=== PATIENT | female | born 1965 | race American Indian/Alaskan Native ===

== ENCOUNTER 2021-11-22 09:03 | Inpatient (IN) | payer MEDICARE ==
[2021-11-22] MEDS ORDERED: SODIUM CHLORIDE 0.9% 1000 ML 1,000 ML IV ONE (09:41)
[2021-11-22] MEDS ORDERED: ONDANSETRON 4 MG/2 ML INJ IV ONE (10:11)
[2021-11-22 10:47] LABS: Basophils % (Auto) 0.3 % (0.0-1.8); Eosinophils % (Auto) 0.3 % (0.0-4.3); Hematocrit 39.4 % (30.3-42.9); Hemoglobin 12.3 gm/dl (10.1-14.3); Lymphocytes # (Auto) 1.2 K/mm3 (1.2-5.4); Mean Corpuscular HGB Conc 31 % (30-34); Mean Corpuscular Volume 88 fl (79-97); Monocytes # (Auto) 1.5 K/mm3 (0.0-0.8); Monocytes % (Auto) 8.9 % (0.0-7.3); Platelet Count 231 K/mm3 (140-440); Red Blood Count 4.46 M/mm3 (3.65-5.03); Red Cell Distribution Width 15.3 % (13.2-15.2)
--- NOTE | 2021-11-22 10:59 | Electrocardiograph Report ---
[facility] Test Date: 2021-11-22 Test Time: 10:32:28 Pat Name: MARY BAIRD Department: Room: Gender: F Bundle Person: SHANIA : 1965 Requested By: ELIZABETH GARZA Order Number: [id number] Reading MD: Alban Mckenna Measurements Intervals [place] Rate: 80 P: 53 MN: 146 QRS: 48 QRSD: 94 T: 45 QT: 407 QTc: 468 Interpretive Statements Sinus rhythm No previous ECG available for comparison Electronically Signed On 11-22-2021 10:58:46 EDT by Alban Mckenna
[2021-11-22 11:08] LABS: Albumin 3.9 g/dL (3.9-5); Calcium 8.4 mg/dL (8.4-10.2)
--- NOTE | 2021-11-22 11:55 | Emergency Department Report ---
ED N/V/D HPI - General Chief complaint: Dizziness Stated complaint: LIGHT HEADEDNESS Time Seen by Provider: 11/22/21 09:41 Source: patient, EMS Mode of arrival: Stretcher Limitations: Physical Limitation - History of Present Illness Initial comments: Patient is a 56-year-old female presented ED with complaint of nausea vomiting in dizziness for the past 3 days. She reports history of remote gastric bypass and states she has had off and on episodes of nausea and vomiting. States she may have eaten something over the past few days that triggered her episode. She denies any fever, chills or abdominal pain. - Related Data Home Medications Medication Instructions Recorded Confirmed Last Taken Gabapentin 300 mg PO DAILY 05/11/13 07/28/16 06/07/13 22:00 dilTIAZem [Cardizem] 60 mg PO BID 05/11/13 07/28/16 06/08/13 07:00 Escitalopram Oxalate [Lexapro] 40 mg PO BID 07/28/16 07/28/16 Unknown Gabapentin [Gralise] 300 mg PO DAILY 07/28/16 07/28/16 Unknown Metoprolol [Lopressor] 25 mg PO BID 07/28/16 07/28/16 Unknown Oxycodone HCl [Oxycontin] 80 mg PO BID PRN 07/28/16 07/28/16 Unknown Oxycodone HCl/Acetaminophen 1 each PO TID PRN 07/28/16 07/28/16 Unknown [Percocet 10/325 mg] Tizanidine HCl [Zanaflex] 2 mg PO TID PRN 07/28/16 07/28/16 Unknown buPROPion HCl [Wellbutrin SR] 200 mg PO QAM 07/28/16 07/28/16 Unknown cloNIDine HCL [Catapres] 0.3 mg PO HS 07/28/16 07/28/16 Unknown Allergies Allergy/AdvReac Type Severity Reaction Status Date / Time No Known Allergies Allergy Verified 11/22/21 09:22 ED Review of Systems ROS: Stated complaint: LIGHT HEADEDNESS Other details as noted in HPI Constitutional: malaise, weakness Respiratory: denies: cough, shortness of breath, wheezing Cardiovascular: denies: chest pain, palpitations Gastrointestinal: nausea, vomiting. denies: abdominal pain Genitourinary: denies: urgency, dysuria, discharge Musculoskeletal: denies: back pain, joint swelling, arthralgia Skin: denies: rash, lesions Neurological: denies: headache, weakness, paresthesias Psychiatric: denies: anxiety, depression ED Past Medical Hx - Past Medical History Hx Hypertension: Yes (x 20 yrs) Hx Heart Attack/AMI: No Hx Congestive Heart Failure: Yes (2008 MEDICATION REACTION) Hx Diabetes: Yes (past hx) Hx GERD: Yes (past hx) Hx Liver Disease: No Hx Renal Disease: No Hx Sickle Cell Disease: No Hx Arthritis: Yes Hx Headaches / Migraines: Yes Hx Seizures: No Hx Asthma: Yes (flares up with colds, last treated last winter) Hx COPD: No Hx HIV: No - Surgical History Hx Pacemaker: No Hx Internal Defibrillator: No - Social History Smoking Status: Never Smoker - Medications Home Medications: Home Medications Medication Instructions Recorded Confirmed Last Taken Type Gabapentin 300 mg PO DAILY 05/11/13 07/28/16 06/07/13 22:00 History dilTIAZem [Cardizem] 60 mg PO BID 05/11/13 07/28/16 06/08/13 07:00 History Escitalopram Oxalate [Lexapro] 40 mg PO BID 07/28/16 07/28/16 Unknown History Gabapentin [Gralise] 300 mg PO DAILY 07/28/16 07/28/16 Unknown History Metoprolol [Lopressor] 25 mg PO BID 07/28/16 07/28/16 Unknown History Oxycodone HCl [Oxycontin] 80 mg PO BID PRN 07/28/16 07/28/16 Unknown History Oxycodone HCl/Acetaminophen 1 each PO TID PRN 07/28/16 07/28/16 Unknown History [Percocet 10/325 mg] Tizanidine HCl [Zanaflex] 2 mg PO TID PRN 07/28/16 07/28/16 Unknown History buPROPion HCl [Wellbutrin SR] 200 mg PO QAM 07/28/16 07/28/16 Unknown History cloNIDine HCL [Catapres] 0.3 mg PO HS 07/28/16 07/28/16 Unknown History ED Physical Exam - General Limitations: Physical Limitation General appearance: alert, in no apparent distress, obese - Head Head exam: Present: atraumatic, normocephalic - Respiratory Respiratory exam: Present: normal lung sounds bilaterally. Absent: respiratory distress - Cardiovascular Cardiovascular Exam: Present: regular rate, normal rhythm, normal heart sounds - GI/Abdominal GI/Abdominal exam: Present: soft. Absent: distended, tenderness - Rectal Rectal exam: Present: deferred - Neurological Exam Neurological exam: Present: alert, oriented X3 - Psychiatric Psychiatric exam: Present: normal affect, normal mood - Skin Skin exam: Present: warm, dry, intact, normal color ED Course Vital Signs 11/22/21 11/22/21 11/22/21 09:15 09:39 10:00 Pulse Rate 80 73 77 Respiratory 14 12 14 Rate Blood Pressure 115/55 Blood Pressure 105/83 [Left] O2 Sat by Pulse 95 97 Oximetry 11/22/21 11/22/21 11/22/21 10:16 10:46 11:00 Pulse Rate 80 80 83 Respiratory 13 13 13 Rate Blood Pressure 115/55 147/92 116/68 Blood Pressure [Left] O2 Sat by Pulse 90 92 Oximetry 11/22/21 11:16 Pulse Rate 86 Respiratory 11 L Rate Blood Pressure 116/68 Blood Pressure [Left] O2 Sat by Pulse 91 Oximetry ED Medical Decision Making - Lab Data Result diagrams: 11/22/21 10:06 11/22/21 10:06 - Medical Decision Making Labs reveal acute renal failure with creatinine of 7.7 and BUN of 50. Potassium is 3.6. Patient given 1 L of saline bolus. I discussed case with tripper Dr. Cabrera who will consult. Will admit to hospitalist. Critical care attestation.: If time is entered above; I have spent that time in minutes in the direct care of this critically ill patient, excluding procedure time. ED Disposition Clinical Impression: Acute renal failure, Nausea and vomiting Disposition: ADMITTED INPATIENT Is pt being admited?: Yes Condition: Stable Referrals: PRIMARY CARE, [Primary Care Provider] - 3-5 Days
[2021-11-22] MEDS ORDERED: ACETAMINOPHEN 325 MG TAB PO PRN (13:30)
[2021-11-22] MEDS ORDERED: ONDANSETRON 4 MG/2 ML INJ IV PRN (13:30)
[2021-11-22] MEDS ORDERED: oxyCODONE /ACETAMINOPHEN 5-325MG TAB PO PRN (13:30)
[2021-11-22] MEDS ORDERED: MORPHINE 2 MG/1 ML INJ IV PRN (13:30)
--- NOTE | 2021-11-22 14:02 | Consultation ---
History of Present Illness - Reason for Consult Consult date: 11/22/21 acute renal failure Requesting physician: FANNIE PADILLA - History of Present Illness Patient is a 56-year-old female presented ED with complaint of nausea vomiting in dizziness for the past 3 days. She reports history of remote gastric bypass and states she has had off and on episodes of nausea and vomiting. States she may have eaten something over the past few days that triggered her episode. She denies any fever, chills or abdominal pain. ROS: Stated complaint: LIGHT HEADEDNESS Other details as noted in HPI Constitutional: malaise, weakness Respiratory: denies: cough, shortness of breath, wheezing Cardiovascular: denies: chest pain, palpitations Gastrointestinal: nausea, vomiting. denies: abdominal pain Genitourinary: denies: urgency, dysuria, discharge Musculoskeletal: denies: back pain, joint swelling, arthralgia Skin: denies: rash, lesions Neurological: denies: headache, weakness, paresthesias Psychiatric: denies: anxiety, depression - Past Medical History Hx Hypertension: Yes (x 20 yrs) Hx Heart Attack/AMI: No Hx Congestive Heart Failure: Yes (2009 MEDICATION REACTION) Hx Diabetes: Yes (past hx) Hx GERD: Yes (past hx) Hx Liver Disease: No Hx Renal Disease: No Hx Sickle Cell Disease: No Hx Arthritis: Yes Hx Headaches / Migraines: Yes Hx Seizures: No Hx Asthma: Yes (flares up with colds, last treated last winter) Hx COPD: No Hx HIV: No - Surgical History Hx Pacemaker: No Hx Internal Defibrillator: No - Social History Smoking Status: Never Smoker Medications and Allergies Allergies Allergy/AdvReac Type Severity Reaction Status Date / Time No Known Allergies Allergy Verified 11/22/21 09:22 Home Medications Medication Instructions Recorded Confirmed Last Taken Type Gabapentin 300 mg PO DAILY 05/11/13 07/28/16 06/07/13 22:00 History dilTIAZem [Cardizem] 60 mg PO BID 05/11/13 07/28/16 06/08/13 07:00 History Escitalopram Oxalate [Lexapro] 40 mg PO BID 07/28/16 07/28/16 Unknown History Gabapentin [Gralise] 300 mg PO DAILY 07/28/16 07/28/16 Unknown History Metoprolol [Lopressor] 25 mg PO BID 07/28/16 07/28/16 Unknown History Oxycodone HCl [Oxycontin] 80 mg PO BID PRN 07/28/16 07/28/16 Unknown History Oxycodone HCl/Acetaminophen 1 each PO TID PRN 07/28/16 07/28/16 Unknown History [Percocet 10/325 mg] Tizanidine HCl [Zanaflex] 2 mg PO TID PRN 07/28/16 07/28/16 Unknown History buPROPion HCl [Wellbutrin SR] 200 mg PO QAM 07/28/16 07/28/16 Unknown History cloNIDine HCL [Catapres] 0.3 mg PO HS 07/28/16 07/28/16 Unknown History Active Meds: Active Medications Acetaminophen (Acetaminophen 325 Mg Tab) 650 mg PO Q4H PRN PRN Reason: Pain MILD(1-3)/Fever >100.5/TROTTER Famotidine (Famotidine 20 Mg/2 Ml Inj) 10 mg IV BID LISY Sodium Chloride (Nacl 0.45% 1000 Ml) 1,000 mls @ 125 mls/hr IV DIRECT LISY Morphine Sulfate (Morphine 2 Mg/1 Ml Inj) 2 mg IV Q4H PRN PRN Reason: Pain, Moderate (4-6) Ondansetron HCl (Ondansetron 4 Mg/2 Ml Inj) 4 mg IV Q8H PRN PRN Reason: Nausea And Vomiting Oxycodone/Acetaminophen (Oxycodone /Acetaminophen 5-325mg Tab) 1 tab PO Q6H PRN PRN Reason: Pain, Moderate (4-6) Sodium Chloride (Sodium Chloride 0.9% 10 Ml Flush Syringe) 10 ml IV BID LISY Sodium Chloride (Sodium Chloride 0.9% 10 Ml Flush Syringe) 10 ml IV PRN PRN PRN Reason: LINE FLUSH Exam - Vital Signs Vital signs: Vital Signs Pulse Resp BP Pulse Ox 80 14 105/83 95 11/22/21 09:15 11/22/21 09:15 11/22/21 09:15 11/22/21 09:15 - Physical Exam Narrative exam: - General Limitations: Physical Limitation General appearance: alert, in no apparent distress, obese - Head Head exam: Present: atraumatic, normocephalic - Respiratory Respiratory exam: Present: normal lung sounds bilaterally. Absent: respiratory distress - Cardiovascular Cardiovascular Exam: Present: regular rate, normal rhythm, normal heart sounds - GI/Abdominal GI/Abdominal exam: Present: soft. Absent: distended, tenderness - Rectal Rectal exam: Present: deferred - Neurological Exam Neurological exam: Present: alert, oriented X3 - Psychiatric Psychiatric exam: Present: normal affect, normal mood - Skin Skin exam: Present: warm, dry, intact, normal color Results - Lab Results 11/22/21 10:06 11/22/21 10:06 Most recent lab results Calcium 8.4 mg/dL (8.4-10.2) 11/22/21 10:06 Assessment and Plan impresstion: * JYOTI on likely ckd * Volume depletion * nausea and emesis * s/p gastric bypass * nsaid abuse Plan: * stat ct abd/pelvis noted, no hydronephrosis * follow up eos, stop all NSAIDS * may have advanced ckd, has not seen MD since 2019 * ua and urine lytes * ruled out obstruction * daily lytes * avoid nephrotoxins * unsure if JYOTI due to volume depletion, vs obstruction vs atn/ain vs progression of CKD, she has not seen a MD in years * no emergent indication for EVENT [employer]PERATIONS [employer]GER at this time
[2021-11-22] MEDS: FAMOTIDINE 20 MG/2 ML INJ IV SCH ×2 (15:05→22:46)
--- NOTE | 2021-11-22 15:19 | Cat Scan Report ---
CT ABDOMEN AND PELVIS WITHOUT CONTRAST INDICATION / CLINICAL INFORMATION: ABDOMINAL PAIN. TECHNIQUE: Axial CT images were obtained through the abdomen and pelvis without IV contrast. All CT scans at this location are performed using CT dose reduction for ALARA by means of automated exposure control. COMPARISON: Ultrasound dated 11/16/08 FINDINGS: LOWER CHEST: No significant abnormality. LIVER: No significant abnormality. GALLBLADDER: Cholecystectomy. BILE DUCTS: No significant abnormality. PANCREAS: No significant abnormality. SPLEEN: No significant abnormality. ADRENALS: No significant abnormality. RIGHT KIDNEY / URETER: Simple cyst but no significant abnormality. LEFT KIDNEY / URETER: No significant abnormality. STOMACH / SMALL BOWEL: Gastric bypass with yesterday jejunostomy. No small bowel abnormality. COLON: No significant abnormality. APPENDIX: No significant abnormality. PERITONEUM: No free fluid. No free air. No fluid collection. LYMPH NODES: No significant adenopathy. AORTA / ARTERIES: No significant abnormality. IVC / VEINS: No significant abnormality. URINARY BLADDER: No significant abnormality. REPRODUCTIVE ORGANS: Calcified fibroid in the uterus. No significant abnormality. ADDITIONAL FINDINGS: Small fat-containing umbilical hernia. No bowel involvement. SKELETAL SYSTEM: No significant abnormality. IMPRESSION: 1. No acute process in the abdomen or pelvis. 2. Cholecystectomy and gastric bypass. Signer Name: Quang Rolon MD Signed: 11/22/2021 3:15 PM Workstation Name: [place]
[2021-11-22] MEDS: SODIUM CHLORIDE 0.45% 1000 ML 1,000 ML IV SCH (18:00)
[2021-11-23 03:23] LABS: Bacteria,Urine 1+ /HPF (Negative); Mucus,Urine FEW /HPF
[2021-11-23 03:30] LABS: Color,Urine Yellow (Yellow)
[2021-11-23 04:08] LABS: Creatinine,Urine 311.8 mg/dL (0.1-20.0); Protein/Creatinine Ratio,Urine 0.21
--- NOTE | 2021-11-23 06:39 | History and Physical Report ---
History of Present Illness Date of examination: 11/22/21 Date of admission: 11/22/21 12:53 Chief complaint: Persistent nausea and vomiting for 3 days. History of present illness: 56-year-old female with history of hypertension, peripheral neuropathy, s/p gastric bypass comes in for persistent vomiting and nausea for the past 3 days. Also abdominal pain which is diffuse. Nausea and vomiting is a exacerbating factor. No fever or chills. Patient attributes to eating some fast food 3 days ago. In the emergency room patient's blood pressure creatinine was very high around 7 habits requiring admission for management of possible JYOTI/CKD. Nephrology consulted. - Past Medical History Hx Hypertension: Yes (x 20 yrs) Hx Heart Attack/AMI: No Hx Congestive Heart Failure: Yes (2008 MEDICATION REACTION) Hx Diabetes: Yes (past hx) Hx GERD: Yes (past hx) Hx Arthritis: Yes Hx Headaches / Migraines: Yes Hx Asthma: Yes (flares up with colds, last treated last winter) - Surgical History Hx Pacemaker: No Hx Internal Defibrillator: No - Social History Smoking Status: Never Smoker - Medications Home Medications: Home Medications Medication Instructions Recorded Confirmed Last Taken Type Gabapentin 300 mg PO DAILY 05/11/13 07/28/16 06/07/13 22:00 History dilTIAZem [Cardizem] 60 mg PO BID 05/11/13 07/28/16 06/08/13 07:00 History Escitalopram Oxalate [Lexapro] 40 mg PO BID 07/28/16 07/28/16 Unknown History Gabapentin [Gralise] 300 mg PO DAILY 07/28/16 07/28/16 Unknown History Metoprolol [Lopressor] 25 mg PO BID 07/28/16 07/28/16 Unknown History Oxycodone HCl [Oxycontin] 80 mg PO BID PRN 07/28/16 07/28/16 Unknown History Oxycodone HCl/Acetaminophen 1 each PO TID PRN 07/28/16 07/28/16 Unknown History [Percocet 10/325 mg] Tizanidine HCl [Zanaflex] 2 mg PO TID PRN 07/28/16 07/28/16 Unknown History buPROPion HCl [Wellbutrin SR] 200 mg PO QAM 07/28/16 07/28/16 Unknown History cloNIDine HCL [Catapres] 0.3 mg PO HS 07/28/16 07/28/16 Unknown History Review of Systems ROS: Stated complaint: LIGHT HEADEDNESS Other details as noted in HPI Constitutional: malaise, weakness Respiratory: denies: cough, shortness of breath, wheezing Cardiovascular: denies: chest pain, palpitations Gastrointestinal: nausea, vomiting. denies: abdominal pain Genitourinary: denies: urgency, dysuria, discharge Musculoskeletal: denies: back pain, joint swelling, arthralgia Skin: denies: rash, lesions Neurological: denies: headache, weakness, paresthesias Psychiatric: denies: anxiety, depression Medications and Allergies Allergies Allergy/AdvReac Type Severity Reaction Status Date / Time No Known Allergies Allergy Verified 11/22/21 09:22 Home Medications Medication Instructions Recorded Confirmed Last Taken Type Gabapentin 300 mg PO DAILY 05/11/13 07/28/16 06/07/13 22:00 History dilTIAZem [Cardizem] 60 mg PO BID 05/11/13 07/28/16 06/08/13 07:00 History Escitalopram Oxalate [Lexapro] 40 mg PO BID 07/28/16 07/28/16 Unknown History Gabapentin [Gralise] 300 mg PO DAILY 07/28/16 07/28/16 Unknown History Metoprolol [Lopressor] 25 mg PO BID 07/28/16 07/28/16 Unknown History Oxycodone HCl [Oxycontin] 80 mg PO BID PRN 07/28/16 07/28/16 Unknown History Oxycodone HCl/Acetaminophen 1 each PO TID PRN 07/28/16 07/28/16 Unknown History [Percocet 10/325 mg] Tizanidine HCl [Zanaflex] 2 mg PO TID PRN 07/28/16 07/28/16 Unknown History buPROPion HCl [Wellbutrin SR] 200 mg PO QAM 07/28/16 07/28/16 Unknown History cloNIDine HCL [Catapres] 0.3 mg PO HS 07/28/16 07/28/16 Unknown History Active Meds: Active Medications Acetaminophen (Acetaminophen 325 Mg Tab) 650 mg PO Q4H PRN PRN Reason: Pain MILD(1-3)/Fever >100.5/TROTTER Famotidine (Famotidine 20 Mg/2 Ml Inj) 10 mg IV BID [facility] Last Admin: 11/22/21 22:46 Dose: 10 mg Sodium Chloride (Nacl 0.45% 1000 Ml) 1,000 mls @ 125 mls/hr IV DIRECT LISY Last Admin: 11/22/21 18:00 Dose: 125 mls/hr Morphine Sulfate (Morphine 2 Mg/1 Ml Inj) 2 mg IV Q4H PRN PRN Reason: Pain, Moderate (4-6) Ondansetron HCl (Ondansetron 4 Mg/2 Ml Inj) 4 mg IV Q8H PRN PRN Reason: Nausea And Vomiting Oxycodone/Acetaminophen (Oxycodone /Acetaminophen 5-325mg Tab) 1 tab PO Q6H PRN PRN Reason: Pain, Moderate (4-6) Last Admin: 11/22/21 22:45 Dose: 1 tab Sodium Chloride (Sodium Chloride 0.9% 10 Ml Flush Syringe) 10 ml IV BID [facility] Last Admin: 11/22/21 22:45 Dose: 10 ml Sodium Chloride (Sodium Chloride 0.9% 10 Ml Flush Syringe) 10 ml IV PRN PRN PRN Reason: LINE FLUSH Exam - Constitutional Vitals: Temp Pulse Resp BP Pulse Ox 98.5 F 75 18 105/55 95 11/22/21 20:37 11/23/21 04:21 11/23/21 04:21 11/23/21 04:21 11/23/21 04:21 General appearance: Present: mild distress, well-nourished - EENT Eyes: Present: PERRL ENT: hearing intact, clear oral mucosa - Neck Neck: Present: supple, normal ROM - Respiratory Respiratory effort: normal Respiratory: bilateral: CTA - Cardiovascular Heart rate: 78 Rhythm: regular Heart Sounds: Present: S1 & S2. Absent: rub, click - Extremities Extremities: pulses symmetrical, No edema Peripheral Pulses: within normal limits - Abdominal General gastrointestinal: Present: soft, non-tender, non-distended, normal bowel sounds Female genitourinary: Present: normal - Integumentary Integumentary: Present: clear, warm, dry - Musculoskeletal Musculoskeletal: gait normal, strength equal bilaterally - Psychiatric Psychiatric: appropriate mood/affect, intact judgment & insight - Neurologic Neurologic: CNII-XII intact, moves all extremities HEART Score - HEART Score Troponin: Troponin T 0.020 ng/mL (0.00-0.029) 11/22/21 10:06 Results - Labs CBC & Chem 7: 11/22/21 10:06 11/22/21 10:06 Labs: Laboratory Last Values WBC 16.6 K/mm3 (4.5-11.0) H 11/22/21 10:06 RBC 4.46 M/mm3 (3.65-5.03) 11/22/21 10:06 Hgb 12.3 gm/dl (10.1-14.3) 11/22/21 10:06 Hct 39.4 % (30.3-42.9) 11/22/21 10:06 MCV 88 fl (79-97) 11/22/21 10:06 MCH 28 pg (28-32) 11/22/21 10:06 MCHC 31 % (30-34) 11/22/21 10:06 RDW 15.3 % (13.2-15.2) H 11/22/21 10:06 Plt Count 231 K/mm3 (140-440) 11/22/21 10:06 Lymph % (Auto) 7.0 % (13.4-35.0) L 11/22/21 10:06 [place] % (Auto) 8.9 % (0.0-7.3) H 11/22/21 10:06 Eos % (Auto) 0.3 % (0.0-4.3) 11/22/21 10:06 Baso % (Auto) 0.3 % (0.0-1.8) 11/22/21 10:06 Lymph # (Auto) 1.2 K/mm3 (1.2-5.4) 11/22/21 10:06 [place] # (Auto) 1.5 K/mm3 (0.0-0.8) H 11/22/21 10:06 Eos # (Auto) 0.0 K/mm3 (0.0-0.4) 11/22/21 10:06 Baso # (Auto) 0.0 K/mm3 (0.0-0.1) 11/22/21 10:06 Seg Neutrophils % 83.5 % (40.0-70.0) H 11/22/21 10:06 Seg Neutrophils # 13.8 K/mm3 (1.8-7.7) H 11/22/21 10:06 Sodium 133 mmol/L (137-145) L 11/22/21 10:06 Potassium 3.6 mmol/L (3.6-5.0) 11/22/21 10:06 Chloride 90.0 mmol/L (98-107) L 11/22/21 10:06 Carbon Dioxide 27 mmol/L (22-30) 11/22/21 10:06 Anion Gap 20 mmol/L 11/22/21 10:06 BUN 50 mg/dL (7-17) H 11/22/21 10:06 Creatinine 7.7 mg/dL (0.6-1.2) H 11/22/21 10:06 Estimated GFR 7 ml/min 11/22/21 10:06 BUN/Creatinine Ratio 6 % 11/22/21 10:06 Glucose 96 mg/dL (65-100) 11/22/21 10:06 Calcium 8.4 mg/dL (8.4-10.2) 11/22/21 10:06 Total Bilirubin 0.70 mg/dL (0.1-1.2) 11/22/21 10:06 AST 59 units/L (5-40) H 11/22/21 10:06 ALT 28 units/L (7-56) 11/22/21 10:06 Alkaline Phosphatase 106 units/L (35-129) 11/22/21 10:06 Troponin T 0.020 ng/mL (0.00-0.029) 11/22/21 10:06 Total Protein 6.6 g/dL (6.3-8.2) 11/22/21 10:06 Albumin 3.9 g/dL (3.9-5) 11/22/21 10:06 Albumin/Globulin Ratio 1.4 % 11/22/21 10:06 Urine Color Yellow (Yellow) 11/23/21 02:55 Urine Turbidity Clear (Clear) 11/23/21 02:55 Specific [place] (Man) 1.025 (1.003-1.030) 11/23/21 02:55 Ur Protein (Man) 1+ mg/dL (Negative) 11/23/21 02:55 Ur Ketones (Man) Negative (Negative) 11/23/21 02:55 Ur Nitrite (Man) Negative (Negative) 11/23/21 02:55 Ur Reducing Substances Not Reportable 11/23/21 02:55 Urine Bilirubin (Man) Negative (Negative) 11/23/21 02:55 Urine Ictotest Not Reportable 11/23/21 02:55 Leukocyte Esterase (Man) Negative (Negative) 11/23/21 02:55 Urine WBC (Auto) 5.0 /HPF (0.0-6.0) 11/23/21 02:55 Urine RBC (Auto) 2.0 /HPF (0.0-6.0) 11/23/21 02:55 U Epithel Cells (Auto) 3.0 /HPF (0-13.0) 11/23/21 02:55 Urine Bacteria (Auto) 1+ /HPF (Negative) 11/23/21 02:55 Urine RBC (Manual) 1+ (Negative) 11/23/21 02:55 Urine Mucus Few /HPF 11/23/21 02:55 Urine Yeast (Budding) 1+ /HPF 11/23/21 02:55 Urine Eosinophils None seen (None Seen) 11/23/21 02:55 Urine Creatinine 311.8 mg/dL (0.1-20.0) H 11/23/21 02:55 Protein/Creatinin Ratio 0.21 11/23/21 02:55 Urine Sodium 16 mmol/L 11/23/21 02:55 Urine Total Protein 65 mg/dL (5-11.8) H 11/23/21 02:55 Short CBC 11/22/21 Range/Units 10:06 WBC 16.6 H (4.5-11.0) K/mm3 Hgb 12.3 (10.1-14.3) gm/dl Hct 39.4 (30.3-42.9) % Plt Count 231 (140-440) K/mm3 BMP 11/22/21 10:06 Sodium 133 L Potassium 3.6 Chloride 90.0 L Carbon Dioxide 27 BUN 50 H Creatinine 7.7 H Glucose 96 Calcium 8.4 Cardiac Enzymes 11/22/21 Range/Units 10:06 Troponin T 0.020 (0.00-0.029) ng/mL Liver Function 11/22/21 Range/Units 10:06 Total Bilirubin 0.70 (0.1-1.2) mg/dL AST 59 H (5-40) units/L ALT 28 (7-56) units/L Alkaline Phosphatase 106 (35-129) units/L Albumin 3.9 (3.9-5) g/dL Urine 11/23/21 Range/Units 02:55 Urine Color Yellow (Yellow) - Imaging and Cardiology Imaging and Cardiology: EKG Heart rate of 180 No previous EKG available for comparison No acute ST-T wave changes Abdomen/pelvis CT No acute process in the abdomen and pelvis Cholecystectomy and gastric bypass Assessment and Plan Advance Directives: Yes (Full code) VTE prophylaxis?: Chemical Plan of care discussed with patient/family: Yes - Patient Problems (1) JYOTI (acute kidney injury) Current Visit: Yes Status: Acute Plan to address problem: Secondary to volume depletion and possible ATN Nephrology consulted IV fluids No need for emergent hemodialysis Monitor BUN/creatinine (2) Hypertension Current Visit: Yes Status: Chronic Qualifiers: Hypertension type: primary hypertension Qualified Code(s): I10 - Essential (primary) hypertension Plan to address problem: Continue antihypertensives and adjust medications as necessary (3) Peripheral neuropathy Current Visit: Yes Status: Chronic Qualifiers: Peripheral neuropathy type: polyneuropathy, unspecified Qualified Code(s): G62.9 - Polyneuropathy, unspecified Plan to address problem: On gabapentin (4) Depression Current Visit: Yes Status: Chronic Qualifiers: Depression Type: unspecified Qualified Code(s): F32.A - Depression, unspecified Plan to address problem: Continue Effexor (5) DVT prophylaxis Current Visit: Yes Status: Acute Plan to address problem: On heparin and GI prophylaxis (6) Advance care planning Current Visit: Yes Status: Acute Plan to address problem: Disease education conducted, care plan discussed Diagnosis and prognosis discussed. Patient is full code. Patient acknowledges understanding of the care plan. +30 minutes.
[2021-11-23 06:46] LABS: Basophils % (Auto) 0.3 % (0.0-1.8); Eosinophils # (Auto) 0.1 K/mm3 (0.0-0.4); Eosinophils % (Auto) 1.4 % (0.0-4.3); Hematocrit 35.4 % (30.3-42.9); Hemoglobin 11.6 gm/dl (10.1-14.3); Lymphocytes # (Auto) 1.4 K/mm3 (1.2-5.4); Lymphocytes % (Auto) 14.8 % (13.4-35.0); Mean Corpuscular HGB Conc 33 % (30-34); Mean Corpuscular Volume 87 fl (79-97); Monocytes # (Auto) 1.1 K/mm3 (0.0-0.8); Monocytes % (Auto) 11.2 % (0.0-7.3); Platelet Count 223 K/mm3 (140-440); Red Blood Count 4.09 M/mm3 (3.65-5.03)
[2021-11-23 07:01] LABS: Albumin 3.5 g/dL (3.9-5)
[2021-11-23] MEDS ORDERED: LIP THERAPY VASELINE TP PRN (08:30)
[2021-11-23] MEDS ORDERED: CALCIUM GLUCONATE 1,000 MG in SODIUM CHLORIDE 0.9% 100 ML IV ONE (09:24)
[2021-11-23] MEDS ORDERED: CALC GLUCONATE 1GM/NS 100 ML 1 GM/100 ML BAG IV ONE (10:00)
[2021-11-23] MEDS: FAMOTIDINE 20 MG/2 ML INJ IV SCH (10:02)
[2021-11-23] MEDS: SODIUM CHLORIDE 0.45% 1000 ML 1,000 ML IV SCH (10:07)
--- NOTE | 2021-11-23 16:20 | Progress Note ---
Assessment and Plan impresstion: * JYOTI on likely ckd * Volume depletion * nausea and emesis * s/p gastric bypass * nsaid abuse Plan: * sct abd/pelvis noted, no hydronephrosis * cr is better today, continue gentle ivfs * stopped all NSAIDS * may have advanced ckd, has not seen MD since 2019 * ua and urine lytes * ruled out obstruction * daily lytes * avoid nephrotoxins * unsure if JYOTI due to volume depletion, vs obstruction vs atn/ain vs progression of CKD, she has not seen a MD in years * no emergent indication for FRAME MAKER at this time * home if cr less than 3 in am Subjective Date of service: 11/23/21 Interval history: resting in bed labs and chart reviewed Objective - Exam Narrative Exam: - General Limitations: Physical Limitation General appearance: alert, in no apparent distress, obese - Head Head exam: Present: atraumatic, normocephalic - Respiratory Respiratory exam: Present: normal lung sounds bilaterally. Absent: respiratory distress - Cardiovascular Cardiovascular Exam: Present: regular rate, normal rhythm, normal heart sounds - GI/Abdominal GI/Abdominal exam: Present: soft. Absent: distended, tenderness - Rectal Rectal exam: Present: deferred - Neurological Exam Neurological exam: Present: alert, oriented X3 - Psychiatric Psychiatric exam: Present: normal affect, normal mood - Skin Skin exam: Present: warm, dry, intact, normal color - Vital Signs Vital signs: Vital Signs - 12hr 11/23/21 11/23/21 11/23/21 04:21 09:20 11:48 Temperature 99.2 F Pulse Rate 75 74 Respiratory 18 18 Rate Blood Pressure 105/55 152/69 O2 Sat by Pulse 95 96 96 Oximetry - Lab 11/23/21 05:22 11/23/21 05:22 Most recent lab results Calcium 8.0 mg/dL (8.4-10.2) L 11/23/21 05:22 Urine Creatinine 311.8 mg/dL (0.1-20.0) H 11/23/21 02:55 Urine Sodium 16 mmol/L 11/23/21 02:55 Urine Total Protein 65 mg/dL (5-11.8) H 11/23/21 02:55 Medications & Allergies - Medications Allergies/Adverse Reactions: Allergies No Known Allergies Allergy (Verified 11/22/21 09:22) Home Medications: Home Medications Medication Instructions Recorded Confirmed Last Taken Type Gabapentin 300 mg PO DAILY 05/11/13 07/28/16 06/07/13 22:00 History dilTIAZem [Cardizem] 60 mg PO BID 05/11/13 07/28/16 06/08/13 07:00 History Escitalopram Oxalate [Lexapro] 40 mg PO BID 07/28/16 07/28/16 Unknown History Gabapentin [Gralise] 300 mg PO DAILY 07/28/16 07/28/16 Unknown History Metoprolol [Lopressor] 25 mg PO BID 07/28/16 07/28/16 Unknown History Oxycodone HCl [Oxycontin] 80 mg PO BID PRN 07/28/16 07/28/16 Unknown History Oxycodone HCl/Acetaminophen 1 each PO TID PRN 07/28/16 07/28/16 Unknown History [Percocet 10/325 mg] Tizanidine HCl [Zanaflex] 2 mg PO TID PRN 07/28/16 07/28/16 Unknown History buPROPion HCl [Wellbutrin SR] 200 mg PO QAM 07/28/16 07/28/16 Unknown History cloNIDine HCL [Catapres] 0.3 mg PO HS 07/28/16 07/28/16 Unknown History Active Medications: Generic Name Dose Route Start Last Admin Trade Name Rohanq PRN Reason Stop Dose Admin Acetaminophen 650 mg 11/22/21 13:30 Acetaminophen 325 Mg Tab PO Q4H PRN Pain MILD(1-3)/Fever >100.5/TROTTER Famotidine 10 mg 11/23/21 22:00 Famotidine 10 Mg Tab PO BID LISY Hydrophilic Ointment 1 applic 11/23/21 08:30 11/23/21 09:16 Lip Therapy Vaseline TP 1 applic DIRECT PRN Administration Dry Lips Sodium Chloride 1,000 mls @ 125 mls/hr 11/22/21 13:00 11/23/21 10:07 Nacl 0.45% 1000 Ml IV 125 mls/hr DIRECT LISY Administration Morphine Sulfate 2 mg 11/22/21 13:30 Morphine 2 Mg/1 Ml Inj IV Q4H PRN Pain, Moderate (4-6) Ondansetron HCl 4 mg 11/22/21 13:30 Ondansetron 4 Mg/2 Ml Inj IV Q8H PRN Nausea And Vomiting Oxycodone/Acetaminophen 1 tab 11/22/21 13:30 11/22/21 22:45 Oxycodone /Acetaminophen 5-325mg Tab PO 1 tab Q6H PRN Administration Pain, Moderate (4-6) Sodium Chloride 10 ml 11/22/21 22:00 11/23/21 10:02 Sodium Chloride 0.9% 10 Ml Flush Syringe IV 10 ml BID LISY Administration Sodium Chloride 10 ml 11/22/21 13:30 Sodium Chloride 0.9% 10 Ml Flush Syringe IV PRN PRN LINE FLUSH
[2021-11-23] MEDS ORDERED: oxyCODONE /ACETAMINOPHEN 5-325MG TAB PO SCH (18:25)
--- NOTE | 2021-11-23 18:34 | Progress Note ---
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 intake likely secondary to acute gastritis that is since resolved Creatinine 4.0 (baseline unknown; patient has not seen PCP since 2019) Renally dose meds and avoid nephrotoxic drugs Nephrology consulted; appreciate recs Continue IV fluid resuscitation. Patient encouraged to increase intake of fluids. Monitor with repeat BMP daily. #Hypertension - home medications: Diltiazem 60 mg twice daily, metoprolol tartrate 25 mg twice daily - current medications: Metoprolol tartrate 25 mg. Avoiding WAN inhibitor/ARB's in the setting of JYOTI. - SBP goal <160 and DBP goal <90 while inpatient - continue to monitor #Peripheral neuropathy Continue home gabapentin 300 mg twice daily #Depression Continue home escitalopram 40 mg daily #Osteoarthritis of bilateral knees Home analgesic: OxyContin 80 mg every 12 hours and Percocet 10/325 every 6 hours as needed. Currently administering OxyContin 60 mg every 12 hours and scheduling Percocet 5/325 every 8 hours. #Morbid obesity #Weight loss counseling #Exercise counseling - BMI 57.2 - Counseled patient on the importance of weight loss, incorporating exercise, and dietary changes (lean meats, fresh fruits and vegetables, and water intake). Patient expresses understanding. - Time: +15 min #Advanced care planning -Disease education conducted, care plan discussed, diagnoses discussed, prognosis discussed, and patient acknowledges understanding with care plan -Time: +30 min Disposition Plan: Continue medical management Total Time Spent with Patient (Minutes): 45 minutes History Interval history: No acute events overnight. Hospitalist Physical - Constitutional Vitals: Temp Pulse Resp BP Pulse Ox 98.2 F 70 18 156/75 96 11/23/21 16:20 11/23/21 16:20 11/23/21 16:20 11/23/21 16:20 11/23/21 16:20 General appearance: Present: mild distress, well-nourished, obese - EENT Eyes: Present: PERRL, EOM intact ENT: hearing intact, clear oral mucosa, dentition normal - Neck Neck: Present: supple, normal ROM - Respiratory Respiratory effort: normal Respiratory: bilateral: CTA - Cardiovascular Rhythm: regular Heart Sounds: Present: S1 & S2 - Extremities Extremities: no ischemia, pulses intact, pulses symmetrical, No edema, normal temperature, normal color Peripheral Pulses: within normal limits - Abdominal General gastrointestinal: soft, non-tender, non-distended, normal bowel sounds - Integumentary Integumentary: Present: clear, warm, dry - Psychiatric Psychiatric: appropriate mood/affect, intact judgment & insight, memory intact, cooperative - Neurologic Neurologic: CNII-XII intact, moves all extremities - Allied Health Allied health notes reviewed: nursing HEART Score - HEART Score Troponin: Troponin T 0.020 ng/mL (0.00-0.029) 11/22/21 10:06 Results - Labs CBC & Chem 7: 11/23/21 05:22 11/23/21 05:22 Labs: Laboratory Last Values WBC 9.6 K/mm3 (4.5-11.0) 11/23/21 05: RBC 4.09 M/mm3 (3.65-5.03) 11/23/21 05:22 Hgb 11.6 gm/dl (10.1-14.3) 11/23/21 05:22 Hct 35.4 % (30.3-42.9) 11/23/21 05:22 MCV 87 fl (79-97) 11/23/21 05:22 MCH 28 pg (28-32) 11/23/21 05:22 MCHC 33 % (30-34) 11/23/21 05:22 RDW 15.0 % (13.2-15.2) 11/23/21 05:22 Plt Count 223 K/mm3 (140-440) 11/23/21 05:22 Lymph % (Auto) 14.8 % (13.4-35.0) 11/23/21 05:22 [place] % (Auto) 11.2 % (0.0-7.3) H 11/23/21 05:22 Eos % (Auto) 1.4 % (0.0-4.3) 11/23/21 05:22 Baso % (Auto) 0.3 % (0.0-1.8) 11/23/21 05:22 Lymph # (Auto) 1.4 K/mm3 (1.2-5.4) 11/23/21 05:22 [place] # (Auto) 1.1 K/mm3 (0.0-0.8) H 11/23/21 05:22 Eos # (Auto) 0.1 K/mm3 (0.0-0.4) 11/23/21 05:22 Baso # (Auto) 0.0 K/mm3 (0.0-0.1) 11/23/21 05:22 Seg Neutrophils % 72.3 % (40.0-70.0) H 11/23/21 05:22 Seg Neutrophils # 6.9 K/mm3 (1.8-7.7) 11/23/21 05:22 Sodium 132 mmol/L (137-145) L 11/23/21 05:22 Potassium 3.8 mmol/L (3.6-5.0) 11/23/21 05:22 Chloride 93.1 mmol/L (98-107) L 11/23/21 05:22 Carbon Dioxide 27 mmol/L (22-30) 11/23/21 05:22 Anion Gap 16 mmol/L 11/23/21 05:22 BUN 55 mg/dL (7-17) H 11/23/21 05:22 Creatinine 4.0 mg/dL (0.6-1.2) H 11/23/21 05:22 Estimated GFR 14 ml/min 11/23/21 05:22 BUN/Creatinine Ratio 14 % 11/23/21 05:22 Glucose 110 mg/dL (65-100) H 11/23/21 05:22 Calcium 8.0 mg/dL (8.4-10.2) L 11/23/21 05:22 Total Bilirubin 0.70 mg/dL (0.1-1.2) 11/23/21 05:22 AST 53 units/L (5-40) H 11/23/21 05:22 ALT 29 units/L (7-56) 11/23/21 05:22 Alkaline Phosphatase 101 units/L (35-129) 11/23/21 05:22 Troponin T 0.020 ng/mL (0.00-0.029) 11/22/21 10:06 Total Protein 6.4 g/dL (6.3-8.2) 11/23/21 05:22 Albumin 3.5 g/dL (3.9-5) L 11/23/21 05:22 Albumin/Globulin Ratio 1.2 % 11/23/21 05:22 Urine Color Yellow (Yellow) 11/23/21 02:55 Urine Turbidity Clear (Clear) 11/23/21 02:55 Specific [place] (Man) 1.025 (1.003-1.030) 11/23/21 02:55 Ur Protein (Man) 1+ mg/dL (Negative) 11/23/21 02:55 Ur Ketones (Man) Negative (Negative) 11/23/21 02:55 Ur Nitrite (Man) Negative (Negative) 11/23/21 02:55 Ur Reducing Substances Not Reportable 11/23/21 02:55 Urine Bilirubin (Man) Negative (Negative) 11/23/21 02:55 Urine Ictotest Not Reportable 11/23/21 02:55 Leukocyte Esterase (Man) Negative (Negative) 11/23/21 02:55 Urine WBC (Auto) 5.0 /HPF (0.0-6.0) 11/23/21 02:55 Urine RBC (Auto) 2.0 /HPF (0.0-6.0) 11/23/21 02:55 U Epithel Cells (Auto) 3.0 /HPF (0-13.0) 11/23/21 02:55 Urine Bacteria (Auto) 1+ /HPF (Negative) 11/23/21 02:55 Urine RBC (Manual) 1+ (Negative) 11/23/21 02:55 Urine Mucus Few /HPF 11/23/21 02:55 Urine Yeast (Budding) 1+ /HPF 11/23/21 02:55 Urine Eosinophils None seen (None Seen) 11/23/21 02:55 Urine Creatinine 311.8 mg/dL (0.1-20.0) H 11/23/21 02:55 Protein/Creatinin Ratio 0.21 11/23/21 02:55 Urine Sodium 16 mmol/L 11/23/21 02:55 Urine Total Protein 65 mg/dL (5-11.8) H 11/23/21 02:55 Active Medications - Current Medications Current Medications: Generic Name Dose Route Start Last Admin Trade Name Freq PRN Reason Stop Dose Admin Acetaminophen 650 mg 11/22/21 13:30 Acetaminophen 325 Mg Tab PO Q4H PRN Pain MILD(1-3)/Fever >100.5/TROTTER Famotidine 10 mg 11/23/21 22:00 Famotidine 10 Mg Tab PO BID LISY Gabapentin 400 mg 11/23/21 20:00 Gabapentin 300 Mg Cap PO TID LISY Hydrophilic Ointment 1 applic 11/23/21 08:30 11/23/21 09:16 Lip Therapy Vaseline TP 1 applic DIRECT PRN Administration Dry Lips Sodium Chloride 1,000 mls @ 125 mls/hr 11/22/21 13:00 11/23/21 10:07 Nacl 0.45% 1000 Ml IV 125 mls/hr DIRECT LISY Administration Metoprolol Tartrate 25 mg 11/23/21 22:00 Metoprolol Tartrate 25 Mg Tab PO BID LISY Ondansetron HCl 4 mg 11/22/21 13:30 Ondansetron 4 Mg/2 Ml Inj IV Q8H PRN Nausea And Vomiting Oxycodone HCl 60 mg 11/23/21 22:00 Oxycodone Er 20 Mg Tab PO Q12HR LISY Oxycodone/Acetaminophen 2 tab 11/23/21 18:25 Oxycodone /Acetaminophen 5-325mg Tab PO Q6H LISY Sodium Chloride 10 ml 11/22/21 22:00 11/23/21 10:02 Sodium Chloride 0.9% 10 Ml Flush Syringe IV 10 ml BID LISY Administration Sodium Chloride 10 ml 11/22/21 13:30 Sodium Chloride 0.9% 10 Ml Flush Syringe IV PRN PRN LINE FLUSH
[2021-11-23] MEDS: oxyCODONE /ACETAMINOPHEN 5-325MG TAB PO SCH (19:15)
[2021-11-23] MEDS ORDERED: GABAPENTIN 300 MG CAP PO SCH (20:00)
[2021-11-23] MEDS: GABAPENTIN 400 MG CAP PO SCH (20:26)
[2021-11-23] MEDS: oxyCODONE ER 20 MG TAB PO SCH (21:23)
[2021-11-23] MEDS: FAMOTIDINE 10 MG TAB PO SCH (21:24)
[2021-11-23] MEDS: METOPROLOL TARTRATE 25 MG TAB PO SCH (21:26)
[2021-11-24] MEDS: oxyCODONE /ACETAMINOPHEN 5-325MG TAB PO SCH ×2 (03:57→11:47)
[2021-11-24 05:29] LABS: Basophils % (Auto) 0.7 % (0.0-1.8); Eosinophils # (Auto) 0.1 K/mm3 (0.0-0.4); Eosinophils % (Auto) 2.5 % (0.0-4.3); Hematocrit 35.4 % (30.3-42.9); Hemoglobin 11.2 gm/dl (10.1-14.3); Lymphocytes # (Auto) 0.8 K/mm3 (1.2-5.4); Lymphocytes % (Auto) 13.6 % (13.4-35.0); Mean Corpuscular HGB Conc 32 % (30-34); Mean Corpuscular Volume 88 fl (79-97); Monocytes # (Auto) 0.8 K/mm3 (0.0-0.8); Monocytes % (Auto) 13.3 % (0.0-7.3); Platelet Count 228 K/mm3 (140-440); Red Blood Count 4.05 M/mm3 (3.65-5.03); Red Cell Distribution Width 14.6 % (13.2-15.2)
[2021-11-24 05:54] LABS: Albumin 3.6 g/dL (3.9-5); Calcium 8.5 mg/dL (8.4-10.2)
--- NOTE | 2021-11-24 09:17 | Discharge Summary ---
Providers - Providers Date of Admission: 11/22/21 12:53 Date of discharge: 11/24/21 Attending physician: LUCA HEATON MD 11/22/21 11:59 Consult to Physician [CONS] Stat Comment: Consulting Provider: IRENA SORENSON Physician Instructions: Reason For Exam: Acute renal failure 11/23/21 09:35 Occupational Therapy Evaluate and Treat [CONS] Routine Comment: Reason For Exam: weakness Physical Therapy Evaluation and Treat [CONS] Routine Comment: Reason For Exam: recent falls weakness Primary care physician: AUTO TRANSMISSION TECHNICIAN Hospitalization Reason for admission: JYOTI on CKD stage III secondary to vasomotor nephropathy Condition: Stable Pertinent studies: Reviewed. Procedures: None. Hospital course: The patient is a 56-year-old female with past medical history of depression, anxiety, hypertension, osteoarthritis of bilateral knees, remote gastric bypass, and morbid obesity who presented to the ED with complaints of nausea, vomiting, and lightheadedness for the previous 72 hours. Patient admits to having decreased p.o. intake over the last week secondary to likely acute gastritis. Patient denies any fevers, chills, abdominal pain, diarrhea, or sick contacts. Patient endorses her nausea and vomiting has since ceased prior to presenting to the ED. On presentation, the patient was found to be hemodynamically stable with labs remarkable for sodium 133, creatinine 7.7, and WBC 16.6. Patient denies having any known chronic kidney disease; however, she also endorses last seeing a primary care provider in 2019 (has not seen a provider due to COVID-19 pandemic). Patient was initiated with IV fluids, nephrology was consulted for further management. The patient's creatinine has since reduced to 1.3. Given the patient's labs, she likely has CKD stage III at baseline. Patient was counseled about the importance of increasing her p.o. intake (specifically fluids), the patient expressed understanding. Patient was also counseled about following up with her primary care provider, and weight loss in order to alleviate her need for opiates in regards to her degenerative osteoarthritis of her bilateral knees. Patient expressed understanding. Patient is medically clear for discharge. Disposition: HOME / SELF CARE / HOMELESS Final Discharge Diagnosis (Prints w/discharge instructions): JYOTI on CKD stage III secondary to vasomotor nephropathy, hypertension, peripheral neuropathy, depression, osteoarthritis of bilateral knees, morbid obesity. Time spent for discharge: 45 min Core Measure Documentation - Palliative Care Palliative Care/ Comfort Measures: Not Applicable - Core Measures Any of the following diagnoses?: none Exam - Constitutional Vitals: Temp Pulse Resp BP Pulse Ox 98.8 F 75 18 129/45 95 11/24/21 03:56 11/24/21 03:56 11/24/21 03:56 11/24/21 03:56 11/24/21 03:56 General appearance: Present: no acute distress, well-nourished, obese - EENT Eyes: Present: PERRL, EOM intact ENT: hearing intact, clear oral mucosa, dentition normal - Neck Neck: Present: supple, normal ROM - Respiratory Respiratory effort: normal Respiratory: bilateral: CTA - Cardiovascular Rhythm: regular Heart Sounds: Present: S1 & S2 - Extremities Extremities: no ischemia, pulses intact, pulses symmetrical, No edema, normal temperature, normal color Peripheral Pulses: within normal limits - Abdominal General gastrointestinal: Present: soft, non-tender, non-distended, normal bowel sounds Female genitourinary: Present: deferred - Rectal Rectal Exam: deferred - Integumentary Integumentary: Present: clear, warm, dry - Musculoskeletal Musculoskeletal: strength equal bilaterally - Psychiatric Psychiatric: appropriate mood/affect, intact judgment & insight, memory intact, cooperative - Neurologic Neurologic: CNII-XII intact, moves all extremities - Allied Health Allied health notes reviewed: nursing Plan Activity: no restrictions Diet: low salt Additional Instructions: The patient is a 56-year-old female with past medical history of depression, anxiety, hypertension, osteoarthritis of bilateral knees, remote gastric bypass, and morbid obesity who presented to the ED with complaints of nausea, vomiting, and lightheadedness for the previous 72 hours. Patient admits to having decreased p.o. intake over the last week secondary to likely acute gastritis. Patient denies any fevers, chills, abdominal pain, diarrhea, or sick contacts. Patient endorses her nausea and vomiting has since ceased prior to presenting to the ED. On presentation, the patient was found to be hemodynamically stable with labs remarkable for sodium 133, creatinine 7.7, and WBC 16.6. Patient denies having any known chronic kidney disease; however, she also endorses last seeing a primary care provider in 2019 (has not seen a provider due to COVID-19 pandemic). Patient was initiated with IV fluids, nephrology was consulted for further management. The patient's creatinine has since reduced to 1.3. Given the patient's labs, she likely has CKD stage III at baseline. Patient was counseled about the importance of increasing her p.o. intake (specifically fluids), the patient expressed understanding. Patient was also counseled about following up with her primary care provider, and weight loss in order to alleviate her need for opiates in regards to her degenerative osteoarthritis of her bilateral knees. Patient expressed understanding. Patient is medically clear for discharge. Care Plan Goals: Patient is medically cleared for discharge. Assessment: The patient is a 56-year-old female with past medical history of depression, anxiety, hypertension, osteoarthritis of bilateral knees, remote gastric bypass, and morbid obesity who presented to the ED with complaints of nausea, vomiting, and lightheadedness for the previous 72 hours. Patient admits to having decreased p.o. intake over the last week secondary to likely acute gastritis. Patient denies any fevers, chills, abdominal pain, diarrhea, or sick contacts. Patient endorses her nausea and vomiting has since ceased prior to presenting to the ED. On presentation, the patient was found to be hemodynamically stable with labs remarkable for sodium 133, creatinine 7.7, and WBC 16.6. Patient denies having any known chronic kidney disease; however, she also endorses last seeing a primary care provider in 2019 (has not seen a provider due to COVID-19 pandemic). Patient was initiated with IV fluids, nephrology was consulted for further management. The patient's creatinine has since reduced to 1.3. Given the patient's labs, she likely has CKD stage III at baseline. Patient was counseled about the importance of increasing her p.o. intake (specifically fluids), the patient expressed understanding. Patient was also counseled about following up with her primary care provider, and weight loss in order to marcelino viate her need for opiates in regards to her degenerative osteoarthritis of her bilateral knees. Patient expressed understanding. Patient is medically clear for discharge. Follow up with: CHARLIE ABARCA MD [Primary Care Provider] - 3-5 Days
[2021-11-24] MEDS: oxyCODONE ER 20 MG TAB PO SCH (09:30)
[2021-11-24] MEDS: GABAPENTIN 400 MG CAP PO SCH ×2 (09:31→14:45)
[2021-11-24] MEDS: FAMOTIDINE 10 MG TAB PO SCH (09:31)
[2021-11-24] MEDS: METOPROLOL TARTRATE 25 MG TAB PO SCH (09:32)
[2021-11-24] MEDS ORDERED: ESCITALOPRAM 10 MG TAB PO SCH (10:00)
[2021-11-24 17:20] VITALS: BP 180/90
== END 2021-11-24 18:03 | disposition home or self-care (01) | DRG 683 ==
LOC: ED 09:03 → 3A 12:53
PROVIDERS: ADMIT Internal Medicine; ATTEND Student in an Organized Health Care Education/Training Program
DX: N17.0 Acute kidney failure with tubular necrosis (principal); Z68.43 Body mass index [BMI] 50.0-59.9, adult; E86.9 Volume depletion, unspecified; K29.70 Gastritis, unspecified, without bleeding; K21.9 Gastro-esophageal reflux disease without esophagitis; I10 Essential (primary) hypertension; G43.909 Migraine, unspecified, not intractable, without status migrainosus; G62.9 Polyneuropathy, unspecified; M19.90 Unspecified osteoarthritis, unspecified site; J45.909 Unspecified asthma, uncomplicated; F32.A Depression, unspecified; F19.10 Other psychoactive substance abuse, uncomplicated; M17.0 Bilateral primary osteoarthritis of knee; E66.01 Morbid (severe) obesity due to excess calories; Z71.3 Dietary counseling and surveillance
CPT/HCPCS: 36415; 74176; 80053; 81001; 82570; 84156; 84300; 84484; 85025; 89050; 93005; 96374; 99285; G0378; J3490; J0610; J2405; J7030